=== PATIENT | male | born 1985 | race Caucasian/White ===

== ENCOUNTER 2021-12-30 17:04 | Observation (INO) ==
[2021-12-30 17:44] LABS: Basophils # 0.1 10*3/uL (0.0-0.2); Basophils % 0.3 % (0.0-0.8); Eosinophils % 0.2 % (0.00-10.9); Hematocrit 44.9 VOL% (42.0-52.0); Hemoglobin 15.2 GM/DL (14.0-18.0); Immature Granulocytes % 0.7 %; Immature Granulocytes Absolute 0.12 #; Lymphocytes # 1.2 10*3/uL (1.4-4.0); Lymphocytes % 6.3 % (21.2-54.2); Mean Corpuscular HGB Conc 33.9 GM/DL (32-36); Mean Corpuscular Volume 85.4 FL (87-102); Mean Platelet Volume 9.1 FL (9.6-12.0); Neutrophils % 85.5 % (38.7-73.9); Platelet Count 271 T/CUMM (130-400); Red Blood Count 5.26 MC/CUMM (3.8-5.5); Red Cell Distribution Width 12.9 % (9.3-17.3); White Blood Count 18.4 T/CUMM (4-12)
[2021-12-30] MEDS ORDERED: SODIUM CHLORIDE 0.9% 1,000 ML IV STA (18:11)
[2021-12-30] MEDS ORDERED: MORPHINE 2 MG/1 ML SYRINGE IV STA ×2 (18:12→19:32)
[2021-12-30] MEDS ORDERED: PANTOPRAZOLE 40 MG VIAL IV STA (18:12)
[2021-12-30] MEDS ORDERED: ONDANSETRON 4 MG/2 ML VIAL IV ONE (18:12)
[2021-12-30] MEDS ORDERED: KETOROLAC 30 MG/1 ML VIAL IV STA (18:23)
[2021-12-30 18:25] LABS: Albumin 4.2 G/DL (3.4-5.0); Bilirubin,Total 0.8 MG/DL (0.20-1.00); Calcium 9.1 MG/DL (8.5-10.1); Osmolality,Calculated 278.7 MOS/KG (273-304); Potassium 4.1 MMOL/L (3.5-5.1); Total Protein 7.5 G/DL (6.4-8.2)
[2021-12-30] MEDS ORDERED: ONDANSETRON 4 MG/2 ML VIAL IV PRN (19:40)
[2021-12-30] MEDS: SODIUM CHLORIDE 0.9% 1,000 ML IV SCH (20:08)
[2021-12-30] MEDS ORDERED: MORPHINE 2 MG/1 ML SYRINGE IV PRN (22:30)
[2021-12-31] MEDS: SODIUM CHLORIDE 0.9% 1,000 ML IV SCH ×2 (03:43→20:47)
[2021-12-31] MEDS ORDERED: ONDANSETRON 4 MG/2 ML VIAL ONE (09:20)
[2021-12-31] MEDS ORDERED: LIDOCAINE 2% 5 ML VIAL ONE (09:20)
[2021-12-31] MEDS ORDERED: propofoL 200 MG/20 ML VIAL IV ONE ×2 (09:20→10:24)
[2021-12-31] MEDS ORDERED: ROCURONIUM 50 MG/5 ML VIAL IV ONE (09:20)
[2021-12-31] MEDS ORDERED: fentaNYL 100 MCG/2 ML VIAL ONE ×2 (09:20→10:28)
[2021-12-31] MEDS ORDERED: MIDAZOLAM 2 MG/2 ML VIAL ONE (09:20)
[2021-12-31] MEDS ORDERED: TISSUE ADHESIVE 1 EACH APPLICATOR TOP ONE (09:29)
[2021-12-31] MEDS ORDERED: BUPIVACAINE MPF 0.25% 30 ML VIAL ONE (09:29)
[2021-12-31] MEDS ORDERED: LIDOCAINE 1%/EPI INJ 20 ML VIAL ONE (09:29)
[2021-12-31] MEDS ORDERED: LACTATED RINGERS 1,000 ML IV SCH (09:30)
[2021-12-31] MEDS ORDERED: GLYCOPYRROLATE 0.4 MG/2 ML VIAL ONE (10:18)
[2021-12-31] MEDS ORDERED: ACETAMINOPHEN INJ 1,000 MG/100 ML VIAL IV ONE (10:18)
[2021-12-31] MEDS ORDERED: KETOROLAC 30 MG/1 ML VIAL ONE (10:18)
[2021-12-31] MEDS ORDERED: NEOSTIGMINE 10 MG/10 ML VIAL ONE (10:18)
[2021-12-31] MEDS ORDERED: SEVOFLURANE 1 UNIT/15 MINUTE INH ONE (10:40)
[2021-12-31] MEDS: KETOROLAC 15 MG/1 ML VIAL IV PRN (18:13)
[2022-01-01] MEDS: SODIUM CHLORIDE 0.9% 1,000 ML IV SCH ×2 (00:44→04:45)
[2022-01-01] MEDS: KETOROLAC 15 MG/1 ML VIAL IV PRN (00:57)
[2022-01-01 08:09] VITALS: BP 129/68
== END 2022-01-01 10:45 | disposition home or self-care (01) ==
LOC: N.ED 17:04 → N.EDINP 17:04 → N.5E 22:00
PROVIDERS: ADMIT Surgery; ATTEND Surgery